=== PATIENT | female | born 1960 | race American Indian/Alaskan Native ===

== ENCOUNTER 2017-02-20 08:37 | Emergency (ER) | payer SELFPAY ==
[2017-02-20 08:54] VITALS: BP 208/122
[2017-02-20] MEDS ORDERED: ZOFRAN IV ONE (09:23)
[2017-02-20] MEDS ORDERED: NORMODYNE IV ONE (09:23)
[2017-02-20] MEDS ORDERED: MORPHINE IV ONE (09:23)
== END 2017-02-20 10:13 | disposition home or self-care (01) ==
LOC: ED 08:37
DX: I10 Essential (primary) hypertension (principal); Z53.21 Procedure and treatment not carried out due to patient leaving prior to being seen by health care provider
CPT/HCPCS: 93005; 93010